=== PATIENT | female | born 1995 | race Two or more races ===

== ENCOUNTER 2016-07-28 10:32 | Emergency (ER) | payer SELFPAY ==
--- NOTE | 2016-07-28 10:43 | ER Document Report ---
ED Medical Screen (RME) - General Stated Complaint: COUGH Notes: 20 yo female c/o cough x 4 months. nasal congestion,headache generalized weakness and unexplained bruising. pt has been seen in ED several times for same complaint. TRAVEL OUTSIDE OF THE [place] IN LAST 30 DAYS: No - Related Data Allergies/Adverse Reactions: No Known Allergies Allergy (Verified 07/28/16 10:39) Past Medical History Pulmonary Medical History: Reports: Hx Asthma - Immunizations Immunizations up to date: Yes Hx Diphtheria, Pertussis, Tetanus Vaccination: Yes
[2016-07-28 11:11] LABS: ABSOLUTE BASOPHILS # (AUTO) 0.1 10^3/uL (0.0-0.2); ABSOLUTE EOSINOPHILS # (AUTO) 0.3 10^3/uL (0.0-0.6); ABSOLUTE LYMPHOCYTES (AUTO) 2.3 10^3/uL (0.5-4.7); ABSOLUTE MONOCYTES (AUTO) 0.3 10^3/uL (0.1-1.4); ABSOLUTE NEUT (AUTO) 6.3 10^3/uL (1.7-8.2); BASOPHILS % (AUTO) 0.6 % (0-2); EOSINOPHILS % (AUTO) 3.3 % (0-6); HEMATOCRIT 34.4 % (36.0-47.0); HEMOGLOBIN 10.8 g/dL (12.0-15.5); LYMPHOCYTES % (AUTO) 24.5 % (13-45); MEAN CORPUSCULAR HEMOGLOBIN 24.3 pg (27.0-33.4); MEAN CORPUSCULAR HGB CONC 31.5 g/dL (32.0-36.0); MEAN CORPUSCULAR VOLUME 77 fl (80-97); MONOCYTES % (AUTO) 3.7 % (3-13); RED BLOOD COUNT 4.45 10^6/uL (3.72-5.28); RED CELL DISTRIBUTION WIDTH 15.4 % (11.5-14.0); SEGMENTED NEUTROPHILS % (AUTO) 67.9 % (42-78); WHITE BLOOD COUNT 9.3 10^3/uL (4.0-10.5)
[2016-07-28 11:28] LABS: ALANINE AMINOTRANSFERASE 23 U/L (5-35); ALBUMIN 4.4 g/dL (3.7-5.6); ALKALINE PHOSPHATASE 73 U/L (50-135); ANION GAP 14 (5-19); ASPARTATE AMINO TRANSFERASE 12 U/L (5-30); BILIRUBIN,TOTAL 0.4 mg/dL (0.2-1.3); BLOOD UREA NITROGEN 13 mg/dL (7-20); CALCIUM 9.3 mg/dL (8.4-10.2); CARBON DIOXIDE 26 mmol/L (22-30); CHLORIDE 101 mmol/L (98-107); CREATININE RESULT 0.61 mg/dL (0.52-1.25); GLUCOSE 120 mg/dL (75-110); SODIUM 140.9 mmol/L (137-145); TOTAL PROTEIN 7.3 g/dL (6.3-8.2)
[2016-07-28] MEDS ORDERED: DEXAMETHASONE SOD PHOS INJ 10 MG/1 ML VIAL PO ONE (12:34)
--- NOTE | 2016-07-28 12:34 | ER Document Report ---
ED Respiratory Problem - General Chief Complaint: Cough Stated Complaint: COUGH Information source: Patient Notes: 20-year-old female with past medical history as recorded including asthma and iron deficiency anemia. Patient has never been admitted for asthma. Patient states she has had some increased congestion and coughing over the last 3-4 days. She states a mild intermittent low-grade subjective fevers. She denies any vomiting, diarrhea, chest pain or back pain. Patient has been evaluated in the emergency department during the past 6 months and found to have iron deficiency anemia. Patient has been placed on iron. does not have insurance and states she needs a refill prescription for albuterol inhaler. She states she has an upcoming appointment with the [facility]. TRAVEL OUTSIDE OF THE [place] IN LAST 30 DAYS: No - HPI Patient complains to provider of: Cough, Short of breath Onset: Other - See above Duration: Continuous Quality of pain: No pain Severity: Mild Pain Level: Denies Short of Breath: Mild Cough: Nonproductive Sputum amount: Scant At home treatment: Bronchodilators Associated symptoms: Other - See above Similar symptoms previously: Yes Recently seen / treated by doctor: Yes - Related Data Allergies/Adverse Reactions: No Known Allergies Allergy (Verified 07/28/16 10:39) Past Medical History - Social History Smoking Status: Never Smoker Chew tobacco use (# tins/day): No Smoking Education Provided: No Frequency of alcohol use: None Drug Abuse: None Family History: Reviewed & Not Pertinent Patient has suicidal ideation: No Patient has homicidal ideation: No Pulmonary Medical History: Reports: Hx Asthma Renal/ Medical History: Denies: Hx Peritoneal Dialysis - Immunizations Immunizations up to date: Yes Hx Diphtheria, Pertussis, Tetanus Vaccination: Yes Review of Systems - Review of Systems Constitutional: Fever EENT: Nose congestion, Nose discharge. denies: Eye discharge, Sinus discharge Cardiovascular: denies: Chest pain, Palpitations Respiratory: Cough, Short of breath Gastrointestinal: denies: Vomiting Genitourinary: denies: Dysuria Musculoskeletal: denies: Leg swelling Skin: Other - no hives. denies: Rash Neurological/Psychological: Other - no slurred speech -: Yes All other systems reviewed and negative Physical Exam - Vital signs Vitals: Temp Pulse Resp BP Pulse Ox 98.2 F 88 16 141/87 H 98 07/28/16 10:40 07/28/16 10:40 07/28/16 10:40 07/28/16 10:40 07/28/16 10:40 Notes: Reviewed vital signs and nursing note as charted by RN. CONSTITUTIONAL: Alert and oriented and responds appropriately to questions. Well -appearing; well-nourished HEAD: Normocephalic; atraumatic EYES: PERRL; Conjunctivae clear, sclerae non-icteric ENT: Normal nose; bilateral nonpurulent rhinorrhea; moist mucous membranes; pharynx without lesions noted NECK: Supple without meningismus; non-tender; no cervical lymphadenopathy, no masses CARD: Regular rate and rhythm; no murmurs, no clicks, no rubs, no gallops; symmetric distal pulses RESP: Normal chest excursion without splinting or tachypnea; breath sounds clear and equal bilaterally; no wheezing or rhonchi appreciated. BACK: The back appears normal and is non-tender to palpation, there is no CVA tenderness EXT: Normal ROM in all joints; non-tender to palpation; no cyanosis, no effusions, no edema SKIN: Normal color for age and race; warm; dry; good turgor; capillary refill < 2 seconds; no acute lesions noted NEURO: Moves all extremities equally; Motor and sensory function intact PSYCH: The patient's mood and manner are appropriate. Grooming and personal hygiene are appropriate. Course - Re-evaluation Re-evalutation: 07/28/16 12:32 Given the history and physical examination and x-ray of the chest as well as a CBC was ordered. Patient has no wheezing on auscultation vital signs are stable with good room air oxygen saturation of 98%. Chest x-ray shows normal heart, normal mediastinum, no fractures, normal lung nino, no pneumothorax. Hemoglobin as recorded with an MCV of 77. Given the history and physical examination, patient will be discharged home with strict return precautions and follow-up with the upcoming appointment. I will provide a one-time dose of Decadron to help decrease inflammation and provide a prescription for the albuterol inhaler. - Vital Signs Vital signs: Temp Pulse Resp BP Pulse Ox 98.2 F 88 16 141/87 H 98 07/28/16 10:40 07/28/16 10:40 07/28/16 10:40 07/28/16 10:40 07/28/16 10:40 - Laboratory Result Diagrams: 07/28/16 10:55 07/28/16 10:55 Laboratory results interpreted by me: 07/28/16 07/28/16 10:55 10:55 Hgb 10.8 L Hct 34.4 L MCV 77 L MCH 24.3 L MCHC 31.5 L RDW 15.4 H Glucose 120 H Discharge - Discharge Clinical Impression: Nasal congestion, Cough Condition: Good Disposition: HOME, SELF-CARE Additional Instructions: Come back immediately with any worsening cough, shortness of breath, fevers, leg swelling, or any other acute problems. Prescriptions: Albuterol Sulfate [Proair HFA Inhalation Aerosol 8.5 gm MDI] 2 puff IH Q4H PRN # 1 mdi PRN Reason:
[2016-07-28 12:54] VITALS: BP 134/106
== END 2016-07-28 12:52 | disposition home or self-care (01) ==
LOC: ER 10:32
DX: R05 Cough (principal); R09.81 Nasal congestion; J34.89 Other specified disorders of nose and nasal sinuses; J45.909 Unspecified asthma, uncomplicated; R06.02 Shortness of breath; D50.9 Iron deficiency anemia, unspecified; Z79.899 Other long term (current) drug therapy
CPT/HCPCS: 99283; 36415; 85025; 80053; 71020; J1100

== ENCOUNTER 2016-08-15 10:19 | Emergency (ER) | payer SELFPAY ==
[2016-08-15] MEDS ORDERED: ACETAMINOPHEN 325 MG TABLET PO ONE (10:53)
--- NOTE | 2016-08-15 10:53 | ER Document Report ---
ED Flu Like - General Chief Complaint: Pain All Over Stated Complaint: HEADACHE,SHOULDER PAIN,FEVER,COUGH Notes: The patient is a 20-year-old female, past medical history asthma, presents with 4 months of cough, wheezing and 2 days of fever. She had a dose of Decadron 2 weeks ago which helped her for 3 days, but her cough returned. When she coughs , she is having left shoulder pain and right lateral rib pain. No sick contacts and denies chest pain, sputum, rhinorrhea, leg swelling, abdominal pain , nausea, vomiting or urinary symptoms. TRAVEL OUTSIDE OF THE [place] IN LAST 30 DAYS: No - Related Data Allergies/Adverse Reactions: No Known Allergies Allergy (Verified 07/28/16 10:39) Past Medical History - General Information source: Patient - Social History Smoking Status: Never Smoker Family History: Reviewed & Not Pertinent Pulmonary Medical History: Reports: Hx Asthma Renal/ Medical History: Denies: Hx Peritoneal Dialysis - Immunizations Immunizations up to date: Yes Hx Diphtheria, Pertussis, Tetanus Vaccination: Yes Review of Systems - Review of Systems Notes: REVIEW OF SYSTEMS: CONSTITUTIONAL: +fevers, -chills EENT: -eye pain, -difficulty swallowing, -nasal congestion CARDIOVASCULAR: -chest pain, -syncope. RESPIRATORY: +cough, -SOB GASTROINTESTINAL: -abdominal pain, -nausea, -vomiting, -diarrhea GENITOURINARY: -dysuria, -hematuria MUSCULOSKELETAL: -back pain, -neck pain SKIN: -rash or skin lesions. HEMATOLOGIC: -easy bruising or bleeding. LYMPHATIC: -swollen, enlarged glands. NEUROLOGICAL: -altered mental status or loss of consciousness, -headache, - neurologic symptoms PSYCHIATRIC: -anxiety, -depression. ALL OTHER SYSTEMS REVIEWED AND NEGATIVE. Physical Exam - Vital signs Vitals: Temp Pulse Resp BP 100.5 F H 105 H 20 146/75 H 08/15/16 10:28 08/15/16 10:28 08/15/16 10:28 08/15/16 10:28 - Notes Notes: PHYSICAL EXAMINATION: GENERAL: Well-appearing, well-nourished and in no acute distress. HEAD: Atraumatic, normocephalic. EYES: Pupils equal round and reactive to light, extraocular movements intact, sclera anicteric, conjunctiva are normal. ENT: nares patent, oropharynx clear without exudates. Moist mucous membranes. NECK: Normal range of motion, supple without lymphadenopathy LUNGS: Very mild end expiratory wheezes. HEART: Tachycardia. Regular rhythm without murmurs ABDOMEN: Soft, nontender, normoactive bowel sounds. No guarding, no rebound. No masses appreciated. EXTREMITIES: Normal range of motion, no pitting or edema. No cyanosis. NEUROLOGICAL: Cranial nerves grossly intact. Normal speech, normal gait. Normal sensory, motor, and reflex exams. PSYCH: Normal mood, normal affect. SKIN: Warm, Dry, normal turgor, no rashes or lesions noted. Course - Re-evaluation Re-evalutation: Negative flu test and no pneumonia on chest x-ray. Patient most likely has a URI. She feels much better after DuoNeb. We'll treat her mild asthma exacerbation and URI with Medrol Dosepak, albuterol, Tessalon Perles and Robitussin with codeine and follow-up at her primary care physician this week. She already has an appointment. - Vital Signs Vital signs: Temp Pulse Resp BP Pulse Ox 100.5 F H 105 H 20 146/75 H 08/15/16 10:28 08/15/16 10:28 08/15/16 10:28 08/15/16 10:28 Discharge - Discharge Clinical Impression: Cough, Mild asthma exacerbation, Viral illness Condition: Good Disposition: HOME, SELF-CARE Additional Instructions: Your chest x-ray does not show any evidence of pneumonia. Your flu test was negative. Follow up with your primary care physician this week as scheduled. UPPER RESPIRATORY ILLNESS: You have a viral infection of the respiratory passages -- a "cold." This common infection causes nasal congestion, drainage, and often sore throat and cough. It is highly contagious. The disease usually lasts about 10 to 14 days. There is no "cure" for the viral infection -- it must run its course. If there is a complication, such as bacterial infection in the nose, sinuses, middle ear, or bronchial tubes, antibiotics may be required. The antibiotics won't affect the virus. Drink plenty of fluids. A humidifier may help. An expectorant medication or decongestant may make you more comfortable. Use acetaminophen or ibuprofen for fever or aches. See the doctor if fever persists over two days, if there is any significant worsening of your symptoms, or if you simply fail to improve as expected. BRONCHOSPASM: You have tightness in the bronchial tubes, called bronchospasm. This often occurs with bronchial infections. Allergies, inhaled chemicals, and polluted or cold air can also provoke bronchospasm. It's more likely in patients with asthma in the family. Emergency treatment of bronchospasm may include adrenaline shots or bronchodilator aerosol. You may feel lightheaded and have a rapid pulse for an hour or two. Rest and get plenty of fluids. At home, we'll treat you with a bronchodilator inhaler. Antibiotics and corticosteroids may be required for some patients. Until you recover, avoid chemical fumes, dusts, pollens, and exercising in very cold or dry air. If you smoke, stop now!! If you develop a fever, increased wheezing, chest pain, or severe shortness of breath, you should contact the doctor immediately. COUGH-SUPPRESSANT & EXPECTORANT MEDICATION: You are to use a cough medication as needed for relief of symptoms. This medicine is a combination of an expectorant (to make the mucous thinner and more easily "coughed up") and a cough suppressant (to reduce the frequency of coughing). The cough-suppressant medicine is related to narcotics. You may experience mild nausea and sleepiness. Some patients who are very sensitive to narcotics may have stomach pain from this medicine. Taking the medicine with food reduces these side effects. Do not drive or work with machinery until you know how this medicine affects you. The expectorant should have no side effects. Iodine-containing expectorants (such as organidin) should not be taken by persons with active thyroid disease unless approved by your doctor. Call the doctor if you develop shortness of breath, hives, rash, itching, lightheadedness, or severe nausea and vomiting. INHALED BRONCHODILATORS: You have received a treatment of and/or prescription for an inhaled bronchodilator -- a medication which stimulates the airways in the lung to dilate. This improves the flow of air in asthma, bronchitis, and emphysema. These medicines have some similarity to adrenaline, and can cause similar side effects: shakiness, racing heart, and a sense of nervousness. These side effects decrease with time. Contact your doctor if these side effects are severe. Do not over-use the medicine. Too-frequent use of the inhaler may make it ineffective. Call your doctor if the inhaler is not controlling your symptoms at the prescribed doses. STEROID MEDICATION: You have been given an injection of or oral medicine of the cortisone/ steroid class. This medication is used to control inflammation or allergy. Ced t is usually only given for a short period of time, until the acute process subsides. There are usually no side effects from short-term use of cortisone-like medications. Some persons feel an increased sense of well-being and are not sleepy at bedtime. Long-term use of cortisone medications is best avoided, unless required for a severe condition. If your condition does not remit, or relapses after the course of corticosteroid medication, you should consult your physician. USE OF ACETAMINOPHEN (Tylenol): Acetaminophen may be taken for pain relief or fever control. It's much safer than aspirin, offering a wider range of "safe" dosages. It is safe during . Some brand names are Tylenol, Panadol, Datril, Anacin 3, Tempra, and Liquiprin. Acetaminophen can be repeated every four hours. The following are maximum recommended dosages: >89 pounds or adults 650 mg to 900 mg Acetaminophen can be repeated every four hours. Maximum dose not to exceed 4000 mg a day. SMOKING: If you smoke, you should stop smoking. The tar and chemicals in cigarette smoke are harmful. Smoking has been shown to cause: emphysema chronic bronchitis lung cancer mouth and throat cancer stomach and pancreas cancer premature aging defects In addition, smoking increases ear and lung infections in children of smokers. FOLLOW-UP CARE: If you have been referred to a physician for follow-up care, call the physician s office for an appointment as you were instructed or within the next two days. If you experience worsening or a significant change in your symptoms, notify the physician immediately or return to the Emergency Department at any time for re-evaluation. Prescriptions: Benzonatate [Tessalon Perle 100 mg Capsule] 100 mg PO Q8HP PRN #30 cap PRN Reason: Albuterol Sulfate [Proair HFA Inhalation Aerosol 8.5 gm MDI] 2 puff IH Q4H PRN # 1 mdi PRN Reason: Guaifenesin/Codeine Phos [Robitussin-AC Syrup 59 ml] 10 ml PO QIDP PRN #10 ml PRN Reason: Methylprednisolone [Medrol Dosepack (4 mg/Tab) 21 Tab/Dosepak] 4 mg PO ASDIR PRN #21 tab.ds.pk PRN Reason:
[2016-08-15] MEDS ORDERED: GUAIFENESIN/CODEINE PHOS 100-10 MG/ 5 ML UDC PO ONE (11:09)
[2016-08-15] MEDS ORDERED: IPRATROPIUM/ALBUTEROL 0.5-2.5 MG/3 ML AMPUL NEB ONE (11:28)
[2016-08-15 12:35] VITALS: BP 112/81
== END 2016-08-15 12:30 | disposition home or self-care (01) ==
LOC: ER 10:19
DX: R05 Cough (principal); J45.909 Unspecified asthma, uncomplicated; B34.9 Viral infection, unspecified; R51 Headache; R52 Pain, unspecified; M25.519 Pain in unspecified shoulder
CPT/HCPCS: 94640; 99283; 87804; 71020; J7620

== ENCOUNTER 2016-09-20 20:11 | Emergency (ER) | payer SELFPAY | END 2016-09-20 22:01 | disposition left against medical advice (07) | LOC: ER 20:11 | DX: Z53.9 Procedure and treatment not carried out, unspecified reason (principal); R50.9 Fever, unspecified ==

== ENCOUNTER 2016-10-10 06:14 | Emergency (ER) | payer MEDICAID ==
[2016-10-10] MEDS ORDERED: KETOROLAC TROMETHAMINE INJ/PF 30 MG/1 ML SDV IV ONE (06:38)
--- NOTE | 2016-10-10 06:42 | ER Document Report ---
ED General - General Chief Complaint: Headache >24 hrs old Stated Complaint: HEADACHE,COUGH Mode of Arrival: Ambulatory Information source: Patient Notes: 20-year-old female presents with complaints of headache of 3 weeks duration and productive cough of 4 month duration. Patient notes headache has been getting worse, notes she is been seen multiple times for her cough has been treated with decongestant symptoms have not improved. Patient admits to nasal drainage thick and frontal headache TRAVEL OUTSIDE OF THE [place] IN LAST 30 DAYS: No - HPI Onset: Other Onset/Duration: Persistent Quality of pain: Achy Severity: Mild Pain Level: 1 Associated symptoms: Productive cough, Headache, Shortness of breath Exacerbated by: Denies Relieved by: Denies Similar symptoms previously: Yes Recently seen / treated by doctor: Yes - Related Data Allergies/Adverse Reactions: No Known Allergies Allergy (Verified 07/28/16 10:39) Past Medical History - Social History Smoking Status: Never Smoker Cigarette use (# per day): No Chew tobacco use (# tins/day): No Smoking Education Provided: No Family History: Reviewed & Not Pertinent Patient has suicidal ideation: No Patient has homicidal ideation: No Pulmonary Medical History: Reports: Hx Asthma Renal/ Medical History: Denies: Hx Peritoneal Dialysis - Immunizations Immunizations up to date: Yes Hx Diphtheria, Pertussis, Tetanus Vaccination: Yes Review of Systems - Review of Systems Notes: REVIEW OF SYSTEMS: CONSTITUTIONAL : Denies fever, chills, or sweats. Denies recent illness. EENT: Admits to thick nasal drainage CARDIOVASCULAR: Denies chest pain. Denies palpitations or racing or irregular heart beat. Denies ankle edema. RESPIRATORY: Admits to cough shortness of breath GASTROINTESTINAL: Denies abdominal pain or distention. Denies nausea, vomiting , or diarrhea. Denies blood in vomitus, stools, or per rectum. Denies black, tarry stools. Denies constipation. GENITOURINARY: Denies difficulty urinating, painful urination, burning, frequency, blood in urine, or discharge. FEMALE GENITOURINARY: Denies vaginal bleeding, heavy or abnormal periods, irregular periods. Denies vaginal discharge or odor. MUSCULOSKELETAL: Denies back or neck pain or stiffness. Denies joint pain or swelling. SKIN: Denies rash, lesions or sores. HEMATOLOGIC : Denies easy bruising or bleeding. LYMPHATIC: Denies swollen, enlarged glands. NEUROLOGICAL: Admits to headache PSYCHIATRIC: Denies anxiety or stress. Denies depression, suicidal ideation, or homicidal ideation. ALL OTHER SYSTEMS REVIEWED AND NEGATIVE. Dictation was performed using [employer] voice recognition software PHYSICAL EXAMINATION: GENERAL: Obese female well-appearing in no distress HEAD: Atraumatic, normocephalic. Frontal sinus tenderness noted EYES: Pupils equal round and reactive to light, extraocular movements intact, conjunctiva are normal. ENT: Nares patent, oropharynx clear without exudates. Moist mucous membranes. NECK: Normal range of motion, supple without lymphadenopathy LUNGS: Breath sounds clear to auscultation bilaterally and equal. No wheezes rales or rhonchi. HEART: Regular rate and rhythm without murmurs ABDOMEN: Soft, nontender, nondistended abdomen. No guarding, no rebound. No masses appreciated. Female : deferred Musculoskeletal: Normal range of motion, no pitting or edema. No cyanosis. NEUROLOGICAL: Cranial nerves grossly intact. Normal speech, normal gait. Normal sensory, motor exams PSYCH: Normal mood, normal affect. SKIN: Warm, Dry, normal turgor, no rashes or lesions noted. Physical Exam - Vital signs Vitals: Temp Pulse Resp BP Pulse Ox 98.3 F 117 H 18 137/82 H 98 10/10/16 06:21 10/10/16 06:21 10/10/16 06:21 10/10/16 06:21 10/10/16 06:21 Course - Re-evaluation Re-evalutation: 10/10/16 06:42 Patient has probable sinusitis however given the length of her presentation a d- dimer has been ordered even though patient has no known risk factors for DVTs or PEs 10/10/16 07:32 D-dimer was negative chest x-ray was normal CT of the head notes no acute abnormality, patient has sinusitis. It appears the patient has also been argumentative cursing at her mother and staff, appears patient attempted to swinging at staff members when they asked her to walk to receive a chest x-ray. Patient's crying and yelling in the room. I do not see any life-threatening issues with this patient I will give her follow-up with backfiller. After performing a Medical Screening Examination, I estimate there is LOW risk for ACUTE CORONARY SYNDROME, RESPIRATORY FAILURE, SEPSIS OR MENINGITIS, thus I consider the discharge disposition reasonable. The patient and I have discussed the diagnosis and risks, and we agree with discharging home with close follow- up. We also discussed returning to the Emergency Department immediately if new or worsening symptoms occur. We have discussed the symptoms which are most concerning (e.g., changing or worsening pain, trouble swallowing or breathing, neck stiffness, fever) that necessitate immediate return. - Vital Signs Vital signs: Temp Pulse Resp BP Pulse Ox 98.3 F 117 H 18 137/82 H 98 10/10/16 06:21 10/10/16 06:21 10/10/16 06:21 10/10/16 06:21 10/10/16 06:21 - Laboratory Result Diagrams: 10/10/16 06:45 10/10/16 06:45 Laboratory results interpreted by me: 10/10/16 10/10/16 06:45 06:45 Hgb 11.3 L Hct 34.0 L MCV 77 L MCH 25.5 L RDW 16.7 H Glucose 171 H Calcium 10.4 H Total Protein 8.3 H - Diagnostic Test Radiology reviewed: Image reviewed, Reports reviewed Discharge - Discharge Clinical Impression: Cough Sinusitis Qualifiers: Sinusitis location: frontal Chronicity: acute Recurrence: non-recurrent Qualified Code(s): J01.10 - Acute frontal sinusitis, unspecified Condition: Stable Disposition: HOME, SELF-CARE Instructions: Sinusitis ([facility]), Bronchitis ([facility]) Additional Instructions: Follow up with your physician tomorrow for further care or return to the ED IMMEDIATELY if symptoms worsen or new concerns occur. If you cannot afford to follow up with your primary care physician a list of low cost clinics have been provided at the end of your discharge papers as well. Prescriptions: Azithromycin 250 mg PO ASDIR PRN #6 tablet PRN Reason: Referrals: VALETNIN BERMAN MD [ACTIVE STAFF] - Follow up tomorrow
[2016-10-10 06:55] LABS: ABSOLUTE BASOPHILS # (AUTO) 0.1 10^3/uL (0.0-0.2); ABSOLUTE EOSINOPHILS # (AUTO) 0.3 10^3/uL (0.0-0.6); ABSOLUTE LYMPHOCYTES (AUTO) 2.3 10^3/uL (0.5-4.7); ABSOLUTE MONOCYTES (AUTO) 0.4 10^3/uL (0.1-1.4); BASOPHILS % (AUTO) 0.8 % (0-2); EOSINOPHILS % (AUTO) 2.5 % (0-6); HEMOGLOBIN 11.3 g/dL (12.0-15.5); HGB HCT DIFFERENCE -0.1; MEAN CORPUSCULAR HEMOGLOBIN 25.5 pg (27.0-33.4); MEAN CORPUSCULAR HGB CONC 33.2 g/dL (32.0-36.0); MEAN CORPUSCULAR VOLUME 77 fl (80-97); MONOCYTES % (AUTO) 4.4 % (3-13); RED BLOOD COUNT 4.43 10^6/uL (3.72-5.28); RED CELL DISTRIBUTION WIDTH 16.7 % (11.5-14.0); SEGMENTED NEUTROPHILS % (AUTO) 69.3 % (42-78); WHITE BLOOD COUNT 10.1 10^3/uL (4.0-10.5)
[2016-10-10 07:17] LABS: ALANINE AMINOTRANSFERASE 28 U/L (5-35); ALKALINE PHOSPHATASE 75 U/L (50-135); ASPARTATE AMINO TRANSFERASE 16 U/L (5-30); BILIRUBIN,DIRECT 0.2 mg/dL (0.0-0.4); BILIRUBIN,TOTAL 0.3 mg/dL (0.2-1.3); BLOOD UREA NITROGEN 13 mg/dL (7-20); CALCIUM 10.4 mg/dL (8.4-10.2); CARBON DIOXIDE 26 mmol/L (22-30); CHLORIDE 101 mmol/L (98-107); CREATININE RESULT 0.54 mg/dL (0.52-1.25); GLUCOSE 171 mg/dL (75-110); TOTAL PROTEIN 8.3 g/dL (6.3-8.2)
[2016-10-10 07:21] LABS: ANION GAP 16 (5-19); SODIUM 143.2 mmol/L (137-145)
[2016-10-10 07:43] VITALS: BP 138/88
== END 2016-10-10 07:45 | disposition home or self-care (01) ==
LOC: ER 06:14
DX: J01.10 Acute frontal sinusitis, unspecified (principal); R51 Headache; R05 Cough; J45.909 Unspecified asthma, uncomplicated; R06.02 Shortness of breath; J34.89 Other specified disorders of nose and nasal sinuses
CPT/HCPCS: 99284; 96374; 36415; 85025; 80053; 85379; 87804; 71020; 70450; J1885

== ENCOUNTER 2016-12-19 09:15 | Emergency (ER) | payer MEDICAID ==
[2016-12-19 09:20] VITALS: BP 146/80
--- NOTE | 2016-12-19 09:31 | ER Document Report ---
HPI - HPI Patient complains to provider of: Sore throat congestion and cough Onset: Other - 4 days Onset/Duration: Gradual Quality of pain: Achy Pain Level: 5 Context: 21-year-old non-smoker complaining of head congestion, sore throat,, hoarse voice for 4 days. She thinks is either a sinus infection or strep throat. Associated Symptoms: None Exacerbated by: Denies Relieved by: Denies - ROS ROS below otherwise negative: Yes Systems Reviewed and Negative: Yes All other systems reviewed and negative - REPRODUCTIVE Reproductive: DENIES: : - DERM Skin Color: Normal Past Medical History - General Information source: Patient - Social History Smoking Status: Never Smoker Frequency of alcohol use: None Drug Abuse: None Lives with: Family Family History: Reviewed & Not Pertinent Patient has suicidal ideation: No Patient has homicidal ideation: No Pulmonary Medical History: Reports: Hx Asthma Renal/ Medical History: Denies: Hx Peritoneal Dialysis Surgical Hx: Negative - Immunizations Immunizations up to date: Yes Hx Diphtheria, Pertussis, Tetanus Vaccination: Yes Vertical Provider Document - CONSTITUTIONAL Agree With Documented VS: Yes Exam Limitations: No Limitations General Appearance: No Apparent Distress - INFECTION CONTROL TRAVEL OUTSIDE OF THE [place] IN LAST 30 DAYS: No - HEENT HEENT: Normocephalic, Pharyngeal Erythema - minimal. negative: Tympanic Membrane Red, Tympanic Membrane Bulging - NECK Neck: Supple. negative: Lymphadenopathy-Left - RESPIRATORY Respiratory: Breath Sounds Normal, No Respiratory Distress O2 Sat by Pulse Oximetry: 96 - CARDIOVASCULAR Cardiovascular: Regular Rate, Regular Rhythm - GI/ABDOMEN Gastrointestinal: Abdomen Soft, Abdomen Non-Tender, No Organomegaly - MUSCULOSKELETAL/EXTREMETIES Musculoskeletal/Extremeties: JOSE ELIAS DORSEY - NEURO Level of Consciousness: Awake, Alert - DERM Integumentary: Warm, Dry, No Rash Course - Re-evaluation Re-evalutation: 12/19/16 10:00 Wants an antibiotic and something for pain. - Vital Signs Vital signs: Temp Pulse Resp BP Pulse Ox 98.4 F 102 H 16 146/80 H 96 12/19/16 09:18 12/19/16 09:18 12/19/16 09:18 12/19/16 09:18 12/19/16 09:18 Discharge - Discharge Clinical Impression: Upper respiratory infection Qualifiers: URI type: unspecified viral URI Qualified Code(s): J06.9 - Acute upper respiratory infection, unspecified Condition: Good Disposition: HOME, SELF-CARE Instructions: Acetaminophen, Upper Respiratory Illness ([facility]), Sore Throat ([facility]) , Amoxicillin ([facility]), Anti-Inflammatory Medication ([facility]) Additional Instructions: Please complete the patient satisfaction survey if you get one, and return it.. If you do not receive a survey, then you can go to the [facility] website, [email or web address] and place your comments about your very good care. Thank you very much. It was a pleasure being your medical provider today. Plenty of fluids to er if worse throat culture is pending, call [phone] in 48 hours for the result Prescriptions: Amoxicillin Trihydrate [Amoxil 500 mg Capsule] 1,000 mg PO BID #30 cap Referrals: BETTYE GARCIA MD [Primary Care Provider] - Follow up as needed
[2016-12-19] MEDS ORDERED: IBUPROFEN 800 MG TABLET PO ONE (09:58)
== END 2016-12-19 10:32 | disposition home or self-care (01) ==
LOC: ER 09:15
DX: J06.9 Acute upper respiratory infection, unspecified (principal); R49.0 Dysphonia; J02.9 Acute pharyngitis, unspecified; J45.909 Unspecified asthma, uncomplicated
CPT/HCPCS: 99283; 87070; 87077; J3490

== ENCOUNTER 2016-12-22 09:01 | Emergency (ER) | payer MEDICAID ==
[2016-12-22] MEDS ORDERED: DEXAMETHASONE SOD PHOS INJ 10 MG/1 ML VIAL IV ONE (09:53)
[2016-12-22] MEDS ORDERED: KETOROLAC TROMETHAMINE INJ/PF 30 MG/1 ML SDV IV ONE (09:53)
[2016-12-22] MEDS ORDERED: ONDANSETRON HCL INJ/PF 4 MG/2 ML SDV IV ONE (09:53)
[2016-12-22] MEDS ORDERED: CLINDAMYCIN 600 MG/D5W RTU 50 ML IV ONE (09:53)
--- NOTE | 2016-12-22 10:00 | ER Document Report ---
ED ENT - General Chief Complaint: Sore Throat Stated Complaint: SORE THROAT Time Seen by Provider: 12/22/16 09:42 Information source: Patient Notes: 21 yo female c/o worsening sore throat x 1 week. pt was seen in ED 3 days ago for same. treated with Amox. pt reports pain and swelling have worsened, hard to swallow and hard to breath TRAVEL OUTSIDE OF THE [place] IN LAST 30 DAYS: No - HPI Patient complains to provider of: Throat problem Onset: Last week Onset/Duration: Constant, Persistent, Worse Quality of pain: Achy, Sharp Pain Level: 5 Location of pain: Throat Associated symptoms: Congestion, Difficulty swallowing, Headache, Hoarse voice, Sore throat Similar symptoms previously: Yes Recently seen / treated by doctor: Yes - Related Data Allergies/Adverse Reactions: No Known Allergies Allergy (Verified 12/22/16 09:04) Past Medical History - General Information source: Patient - Social History Smoking Status: Never Smoker Chew tobacco use (# tins/day): No Frequency of alcohol use: None Drug Abuse: None Lives with: Family Family History: Reviewed & Not Pertinent Patient has suicidal ideation: No Patient has homicidal ideation: No Pulmonary Medical History: Reports: Hx Asthma Renal/ Medical History: Denies: Hx Peritoneal Dialysis Surgical Hx: Negative - Immunizations Immunizations up to date: Yes Hx Diphtheria, Pertussis, Tetanus Vaccination: Yes Review of Systems - Review of Systems Constitutional: No symptoms reported EENT: See HPI, Throat pain, Difficulty swallowing, Throat swelling Cardiovascular: No symptoms reported Respiratory: No symptoms reported Gastrointestinal: No symptoms reported Genitourinary: No symptoms reported Female Genitourinary: No symptoms reported Musculoskeletal: No symptoms reported Skin: No symptoms reported Hematologic/Lymphatic: No symptoms reported Neurological/Psychological: No symptoms reported Physical Exam - Vital signs Vitals: Temp Pulse Resp BP Pulse Ox 98.6 F 102 H 16 150/111 H 97 12/22/16 09:04 12/22/16 09:04 12/22/16 09:04 12/22/16 09:04 12/22/16 09:04 Interpretation: Normal - General General appearance: Alert In distress: Mild - HEENT Head: Normocephalic, Atraumatic Eyes: Normal Pupils: PERRL Tympanic membrane: Normal Mouth/Lips: Normal Mucous membranes: Normal Pharynx: Erythema, Tonsillar hypertrophy. No: Exudate, Potential airway comprom. Neck: Normal, Supple - Respiratory Respiratory status: No respiratory distress Chest status: Nontender Breath sounds: Normal Chest palpation: Normal - Cardiovascular Rhythm: Regular Heart sounds: Normal auscultation Murmur: No - Abdominal Inspection: Normal Distension: No distension Bowel sounds: Normal Tenderness: Nontender Organomegaly: No organomegaly - Back Back: Normal, Nontender - Extremities General upper extremity: Normal inspection, Nontender, Normal color, Normal ROM , Normal temperature General lower extremity: Normal inspection, Nontender, Normal color, Normal ROM , Normal temperature, Normal weight bearing. No: Jasmeet's sign - Neurological Neuro grossly intact: Yes Cognition: Normal Orientation: AAOx4 Mary Ann Coma Scale Eye Opening: Spontaneous Kathleen Coma Scale Verbal: Oriented Kathleen Coma Scale Motor: Obeys Commands Mary Ann Coma Scale Total: 15 Speech: Normal Motor strength normal: LUE, RUE, LLE, RLE Sensory: Normal - Psychological Associated symptoms: Normal affect, Normal mood - Skin Skin Temperature: Warm Skin Moisture: Dry Skin Color: Normal Course - Re-evaluation Re-evalutation: 12/22/16 09:[address] to r/o peritonsillar or retropharyngeal abscess since patient's pain has worsened. 12/22/16 11:42 CT showing prominent tonsils and adnoids with no peritonsillar abscess. monospot positive. pt informed of results. stable for discharge. 12/22/16 11:46 blood pressure is elevated today but is most likely due to not feeling well. pt informed of elevated reading and instructed to keep blood pressure diary and follow up with primary care if BP remains elevated. pt acknowledges understanding and agrees to plan 12/22/16 11:48 - Vital Signs Vital signs: Temp Pulse Resp BP Pulse Ox 98.6 F 102 H 18 150/111 H 97 12/22/16 09:04 12/22/16 09:04 12/22/16 09:07 12/22/16 09:04 12/22/16 09:04 - Laboratory Laboratory results interpreted by me: 12/22/16 10:30 Monotest POSITIVE H Discharge - Discharge Clinical Impression: Mononucleosis Condition: Stable Disposition: HOME, SELF-CARE Instructions: Mononucleosis ([facility]), Steroid Medication, Toradol Injection ([facility]) Additional Instructions: you have mononucleosis, which is a virus. treatment is symptomatic. rest and hydrate meds as prescribed follow up with primary care as needed Prescriptions: Ibuprofen [Motrin 800 Mg Tablet] 800 mg PO Q6H #20 tablet Prednisone [Deltasone 20 mg Tablet] 3 tab PO DAILY 5 Days Tramadol HCl [Ultram 50 mg Tablet] 50 mg PO ASDIR PRN #20 tablet PRN Reason: Forms: Elevated Blood Pressure
--- NOTE | 2016-12-22 11:19 | RADIOLOGY REPORT (SQ) ---
EXAM DESCRIPTION: CT SOFT TISSUE NECK WITH COMPLETED DATE/TIME: 12/22/2016 10:58 am REASON FOR STUDY: worsening sore throat COMPARISON: None. TECHNIQUE: Post IV contrasted scanning from skull base through lung apices with review of bone, soft tissue and lung windows. Reconstructed coronal and sagittal MPR images reviewed. All images stored on PACS. All CT scanners at this facility use dose modulation, iterative reconstruction, and/or weight based d osing when appropriate to reduce radiation dose to as low as reasonably achievable (ALARA). [facility]: Dose Right [facility]: CareDose [facility]: Dose Right [facility]: Teradose 4D [facility]: [employer] CONTRAST TYPE AND DOSE: contrast/concentration: Isovue 370.00 mg/ml; Total Contrast Delivered: 75.0 ml; Total Saline Delivered: 31.8 ml RENAL FUNCTION: None required. The patient is less than 50 years old. RADIATION DOSE: Up-to-date CT equipment and radiation dose reduction techniques were employed. CTDIv ol: 18.9 mGy. DLP: 576 mGy-cm. . LIMITATIONS: None. FINDINGS: SKULL BASE: Intact. MAJOR SALIVARY GLANDS: No solid or cystic masses. No inflammatory changes. LYMPHADENOPATHY: There is considerable cervical adenopathy bilaterally. MUCOSAL MASSES OR ASYMMETRY: The palatine tonsils and adenoids are prominent bilaterally. There is n o peritonsillar abscess. LARYNX/CORDS: No abnormal findings. VASCULAR STRUCTURES: The major vessels are patent. LUNG APICES: Clear. BONES: Intact. THYROID: Normal size. No masses. PARANASAL SINUSES: Clear. OTHER: No other significant finding. IMPRESSION: There is prominence of the tonsils and adenoids with no peritonsillar abscess. Cervical adenopathy is felt to be reactive. TECHNICAL DOCUMENTATION: JOB ID: [id number] Quality ID # [id number]: Final reports with documentation of one or more dose reduction techniques (e.g., Au tomated exposure control, adjustment of the mA and/or kV according to patient size, use of iterative reconstruction technique) 2010 [employer]- All Rights Reserved
[2016-12-22 13:18] VITALS: BP 145/84
== END 2016-12-22 13:17 | disposition home or self-care (01) ==
LOC: ER 09:01
DX: B27.90 Infectious mononucleosis, unspecified without complication (principal); J02.9 Acute pharyngitis, unspecified
CPT/HCPCS: 99283; 96375; 96365; 36415; 86308; 70491; S0077; J1885; J2405; J1100

== ENCOUNTER 2017-02-02 00:04 | Emergency (ER) | payer MEDICAID ==
[2017-02-02 01:35] LABS: APPEARANCE,URINE SLIGHTLY-CLOUDY; BILIRUBIN,URINE NEGATIVE (NEGATIVE); GLUCOSE, URINE 50 mg/dL (NEGATIVE); KETONES,URINE NEGATIVE (NEGATIVE); LEUKOCYTE ESTERASE,URINE NEGATIVE (NEGATIVE); NITRITE,URINE NEGATIVE (NEGATIVE); PROTEIN,URINE NEGATIVE (NEGATIVE); UROBILINOGEN,URINE NEGATIVE mg/dL (<2.0)
[2017-02-02] MEDS ORDERED: ONDANSETRON 4 MG TAB.RAPDIS PO ONE (01:38)
--- NOTE | 2017-02-02 01:47 | ER Document Report ---
ED General - General Chief Complaint: L flank pain, N/V Stated Complaint: FLANK PAIN AND VOMITING Time Seen by Provider: 02/02/17 01:10 Notes: Patient is a 21-year-old female presents with complaints of left back pain with some cramping on the left side whenever she urinates. No fevers. No vomiting. Some nausea. No diarrhea. No blood in her urine. No abnormal vaginal discharge or bleeding. No other complaints at this time. TRAVEL OUTSIDE OF THE [place] IN LAST 30 DAYS: No - Related Data Allergies/Adverse Reactions: No Known Allergies Allergy (Verified 02/02/17 01:25) Past Medical History - Social History Smoking Status: Unknown if Ever Smoked Frequency of alcohol use: None Drug Abuse: None Family History: Reviewed & Not Pertinent Pulmonary Medical History: Reports: Hx Asthma Renal/ Medical History: Denies: Hx Peritoneal Dialysis Surgical Hx: Negative - Immunizations Immunizations up to date: Yes Hx Diphtheria, Pertussis, Tetanus Vaccination: Yes Review of Systems - Review of Systems Notes: My Normal Review Basic REVIEW OF SYSTEMS: CONSTITUTIONAL : Denies fever, chills, or sweats. Denies recent illness. EENT: Denies eye, ear, throat, or mouth pain or symptoms. Denies nasal or sinus congestion. RESPIRATORY: Denies cough, cold, or chest congestion. Denies shortness of breath, difficulty breathing, or wheezing. GASTROINTESTINAL: Left back and flank pain.. Denies nausea, vomiting, or diarrhea. Denies constipation. Last BM: GENITOURINARY: Cramping with urination. FEMALE GENITOURINARY: Denies vaginal bleeding, abnormal or irregular periods. LMP: MUSCULOSKELETAL: Left back pain. SKIN: Denies rash or skin lesions. NEUROLOGICAL: Denies altered mental status or loss of consciousness. Denies weakness or paralysis or loss of use of either side. Denies problems with gait or speech. Denies sensory or motor loss. ALL OTHER SYSTEMS REVIEWED AND NEGATIVE. Physical Exam - Vital signs Vitals: Temp Pulse Resp BP Pulse Ox 99.3 F 95 16 140/83 H 99 02/02/17 00:30 02/02/17 00:30 02/02/17 00:30 02/02/17 00:30 02/02/17 00:30 - Notes Notes: General Appearance: Well nourished, alert, cooperative, no acute distress, mild obvious discomfort. Vitals: reviewed, See vital signs table. Head: no swelling or tenderness to the head Eyes: PERRL, EOMI, Conjuctiva clear Mouth: No decreasd moisture Neck: Supple, no neck tenderness, No thyromegaly Lungs: No wheezing, No rales, No rhonci, No accessory muscle use, good air exchange bilaterally. Heart: Normal rate, Regular rythm, No murmur, no rub Abdomen: Normal BS, soft, No rigidity, mild left flank and left lower quadrant abdominal tenderness to palpation, No guarding, no rebound, no abdominal masses , no organomegaly. Back: Negative Jatin's sign. Extremities: strength 5/5 in all extremities, good pulses in all extremities, no swelling or tenderness in the extremities, no edema. Skin: warm, dry, appropriate color, no rash Neuro: speech clear, oriented x 3, normal affect, responds appropriately to questions. Course - Re-evaluation Re-evalutation: 02/02/17 03:17am The exact cause of the patient's dysuria and flank pain is not 100% clear. Her laboratory evaluation is unremarkable. Her urinalysis just shows trace bacteri. Renal ultrasound shows no evidence of hydronephrosis. Patient's exam is very benign. Being that she does have symptoms consistent with UTI will start her on a short course of antibiotics and send a urine for culture. I informed her that is not 100% clear that she has UTI at this time however we will treat based on her symptoms. 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 She denies any abnormal vaginal discharge and is not sexually active and therefore I do not think pelvic exam is warranted at this time. Encourage her to return to ER if she has fevers, worsening pain, or feels unwell. Patient agrees with plan and will be discharged home. Dictation of this chart was performed using voice recognition software; therefore, there may be some unintended grammatical errors. - Vital Signs Vital signs: Temp Pulse Resp BP Pulse Ox 99.3 F 95 16 140/83 H 99 02/02/17 00:30 02/02/17 00:30 02/02/17 00:30 02/02/17 00:30 02/02/17 00:30 - Laboratory Result Diagrams: 02/02/17 01:17 02/02/17 01:17 Laboratory results interpreted by me: 02/02/17 02/02/17 02/02/17 01:17 01:17 01:17 Hgb 10.8 L Hct 33.0 L MCV 77 L MCH 25.2 L RDW 16.7 H BUN 6 L Glucose 127 H Urine Glucose (UA) 50 H Discharge - Discharge Clinical Impression: Dysuria, Flank pain Condition: Good Disposition: HOME, SELF-CARE Additional Instructions: Please return to the ER immediately if you develop fevers, worsneing pain, or feel that you are worsening. i have sent your urine for culture. If it grows a bacteria that is not suscepible to your anitbiotic we will give you a call. Prescriptions: Ciprofloxacin HCl [Cipro 500 mg Tablet] 500 mg PO BID #6 tablet Phenazopyridine HCl [Pyridium 100 Mg Tablet] 100 mg PO BID #6 tablet Forms: Return to Work Referrals: BETTYE GARCIA MD [Primary Care Provider] - Follow up tomorrow
[2017-02-02 02:03] LABS: ABSOLUTE EOSINOPHILS # (AUTO) 0.2 10^3/uL (0.0-0.6); ABSOLUTE LYMPHOCYTES (AUTO) 1.8 10^3/uL (0.5-4.7); ABSOLUTE MONOCYTES (AUTO) 0.3 10^3/uL (0.1-1.4); ABSOLUTE NEUT (AUTO) 4.7 10^3/uL (1.7-8.2); BASOPHILS % (AUTO) 0.5 % (0-2); EOSINOPHILS % (AUTO) 2.4 % (0-6); HEMOGLOBIN 10.8 g/dL (12.0-15.5); HGB HCT DIFFERENCE -0.6; LYMPHOCYTES % (AUTO) 25.9 % (13-45); MEAN CORPUSCULAR HEMOGLOBIN 25.2 pg (27.0-33.4); MEAN CORPUSCULAR HGB CONC 32.7 g/dL (32.0-36.0); MEAN CORPUSCULAR VOLUME 77 fl (80-97); MONOCYTES % (AUTO) 4.5 % (3-13); RED BLOOD COUNT 4.28 10^6/uL (3.72-5.28); RED CELL DISTRIBUTION WIDTH 16.7 % (11.5-14.0); SEGMENTED NEUTROPHILS % (AUTO) 66.7 % (42-78)
[2017-02-02 02:12] LABS: ANION GAP 12 (5-19); BLOOD UREA NITROGEN 6 mg/dL (7-20); CALCIUM 9.1 mg/dL (8.4-10.2); CARBON DIOXIDE 23 mmol/L (22-30); CHLORIDE 104 mmol/L (98-107); CREATININE RESULT 0.59 mg/dL (0.52-1.25); GLUCOSE 127 mg/dL (75-110); POTASSIUM 4.2 mmol/L (3.6-5.0); SODIUM 139.3 mmol/L (137-145)
--- NOTE | 2017-02-02 02:42 | RADIOLOGY REPORT (SQ) ---
EXAM DESCRIPTION: U/S RETROPERITON (RENAL/AORTA) COMPLETED DATE/TIME: 02/02/2017 2:26 am REASON FOR STUDY: left back pain COMPARISON: None. TECHNIQUE: Dynamic and static grayscale images acquired of the kidneys and bladder and recorded on P ACS. Additional selected color Doppler and spectral images recorded. LIMITATIONS: None. FINDINGS: RIGHT KIDNEY: 9.7 cm. Normal size. Normal echogenicity. No solid or suspicious masses. No hydronephrosis. No calcifications. LEFT KIDNEY: 12.2 cm. Normal size. Normal echogenicity. No solid or suspicious masses. No hydroneph rosis. No calcifications. Prominent column of [place]. BLADDER: No masses. Bilateral ureteral jet flow demonstrated. OTHER FINDINGS: No other significant finding. IMPRESSION: NORMAL RENAL AND BLADDER ULTRASOUND. TECHNICAL DOCUMENTATION: JOB ID: [id number] [employer]- All Rights Reserved
[2017-02-02] MEDS ORDERED: PHENAZOPYRIDINE HCL 200 MG TABLET PO ONE (03:07)
[2017-02-02] MEDS ORDERED: CIPROFLOXACIN HCL 500 MG TABLET PO ONE (03:07)
[2017-02-02 04:07] VITALS: BP 142/98
== END 2017-02-02 04:13 | disposition home or self-care (01) ==
LOC: ER 00:04
DX: R30.0 Dysuria (principal); R11.0 Nausea; R10.9 Unspecified abdominal pain; M54.9 Dorsalgia, unspecified; J45.909 Unspecified asthma, uncomplicated
CPT/HCPCS: 99284; 36415; 87086; 85025; 81025; 80048; 81001; 76770; J3490 ×2; S0119

== ENCOUNTER 2017-02-02 04:37 | Emergency (ER) | payer MEDICAID ==
[2017-02-02] MEDS ORDERED: DIPHENHYDRAMINE HCL 50 MG/ML VIAL IV ONE (04:40)
[2017-02-02] MEDS ORDERED: METHYLPREDNISOLONE INJ 125 MG/2 ML SDV IV ONE (04:41)
[2017-02-02] MEDS ORDERED: EPINEPHRINE INJ/PF 1 MG/1 ML AMPULE IM ONE (04:41)
--- NOTE | 2017-02-02 04:46 | ER Document Report ---
ED General - General Stated Complaint: DIFF BREATHING Time Seen by Provider: 02/02/17 04:43 Notes: Patient is a 21-year-old female who was just discharged by me for flank pain and some dysuria. She was placed on Cipro and Pyridium. Shortly after she left she started having allergic reaction to return. She has hives and a hoarse voice. She says she has had hives before but never hoarse voice. She is unaware if she has had these medications in the past and does not remember having any type reaction like this before any medications. No other complaints at this time. TRAVEL OUTSIDE OF THE [place] IN LAST 30 DAYS: No - Related Data Allergies/Adverse Reactions: phenazopyridine Adverse Reaction (Severe, Verified 02/02/17 07:39) ciprofloxacin Adverse Reaction (Verified 02/02/17 07:39) Past Medical History - Social History Smoking Status: Never Smoker Frequency of alcohol use: None Drug Abuse: None Family History: Reviewed & Not Pertinent Pulmonary Medical History: Reports: Hx Asthma Renal/ Medical History: Denies: Hx Peritoneal Dialysis - Immunizations Immunizations up to date: Yes Hx Diphtheria, Pertussis, Tetanus Vaccination: Yes Review of Systems - Review of Systems Notes: My Normal Review Basic REVIEW OF SYSTEMS: CONSTITUTIONAL : Denies fever, chills, or sweats. Denies recent illness. EENT: Persistent voice. CARDIOVASCULAR: Denies chest pain. RESPIRATORY: Some difficulty breathing. GASTROINTESTINAL: Flank pain from previous visit she was just worked up for. Please review to recent chart from previous visit for more details of her flank pain.. Denies nausea, vomiting, or diarrhea. MUSCULOSKELETAL: Denies neck or back pain or joint pain or swelling. SKIN: Hives. NEUROLOGICAL: Denies altered mental status or loss of consciousness. Denies headache. Denies weakness or paralysis or loss of use of either side. Denies problems with gait or speech. Denies sensory or motor loss. ALL OTHER SYSTEMS REVIEWED AND NEGATIVE. Physical Exam - Vital signs Vitals: Pulse Resp BP Pulse Ox 129 H 24 H 151/111 H 97 02/02/17 04:43 02/02/17 04:43 02/02/17 04:43 02/02/17 04:43 - Notes Notes: General Appearance: Well nourished, alert, cooperative, no acute distress, no obvious discomfort. Patient has hoarseness to her voice. Vitals: reviewed, See vital signs table. Head: no swelling or tenderness to the head Eyes: PERRL, EOMI, Conjuctiva clear Mouth: No decreasd moisture Throat: No tonsillar inflammation, No airway obstruction, Neck: Supple, no neck tenderness, No thyromegaly Lungs: No wheezing, No rales, No rhonci, No accessory muscle use, good air exchange bilaterally. No stridor. Heart: Normal rate, Regular rythm, No murmur, no rub Extremities: strength 5/5 in all extremities, good pulses in all extremities, no swelling or tenderness in the extremities, no edema. Skin: Scattered hives. Neuro: speech clear, oriented x 3, normal affect, responds appropriately to questions. Course - Re-evaluation Re-evalutation: 02/02/17 06:35 Patient's rash is almost completely gone. She still says that her throat hurts. She still has some hoarseness in her voice but it is improving. We will continue to monitor the patient to make sure that her voice clears up before being discharged. 02/02/17 08:14 Patient is feeling much improved. Her hives are completely gone. Her throat feels better. She has no signs of airway compromise. She will be discharged home. I will discharge her home with tapering dose steroids as well as an EpiPen. I encourage her to take Benadryl every 6 hours for itching. Encouraged to return to ER immediately if she has any fevers, vomiting, difficulty breathing, or recurrence of allergic reaction not responding to Benadryl. Patient encouraged to stay away from Cipro and Pyridium. At this time we will like to avoid antibiotics the patient's urinalysis just showed mild evidence of infection and we are basing treatment mainly on her symptoms. We will wait for her urine culture come back before reinitiating antibiotics. Patient is agreeable to this. Dictation of this chart was performed using voice recognition software; therefore, there may be some unintended grammatical errors. - Vital Signs Vital signs: Temp Pulse Resp BP Pulse Ox 129 H 20 136/84 H 99 02/02/17 04:43 02/02/17 06:15 02/02/17 06:15 02/02/17 06:15 Discharge - Discharge Clinical Impression: Allergic reaction Qualifiers: Encounter type: initial encounter Qualified Code(s): T78.40XA - Allergy, unspecified, initial encounter Condition: Good Disposition: HOME, SELF-CARE Additional Instructions: ACUTE ALLERGIC REACTION: Your symptoms are due to an allergic reaction. Allergy can cause hives, swelling of the hands, feet, and face, hoarseness, and difficulty swallowing or breathing. It may be due to exposure to medication, animal dander, foods, infection, or insect bites. Medication is a common cause, even when prior use of this same medication caused no problems. Your Allergic reaction was either caused by Ciprofloxacin or Pyridium. Please do not take these medicitons ever again adn inform your doctors of your allergies. Pyridium is also known as Azo in the stores. Do not take Azo. EPINEPHRINE: An injection of epinephrine (also called adrenalin) is used to treat allergic reactions, asthma, and some other medical conditions. It is a stimulant medication that consticts blood vessels, relaxes smooth muscles such as in the bronchioles of the lung, elevates blood pressure, and increases heart rate. It can temporarily make you feel very nervous and shakey, but it's affects last only a short time, about 15 to 30 minutes at most. STEROID MEDICATION INJECTION: You have been given an injection of medicine of the cortisone/steroid class. This medication is used to control inflammation or allergy. It is often continued as a pill for a short period of time, until the acute process subsides. There are usually no side effects from short-term use of cortisone-like medications. Some persons feel an increased sense of well-being and are not sleepy at bedtime. Long-term use of cortisone medications is best avoided, unless required for a severe condition. If your condition does not remit, or relapses after the course of corticosteroid medication, you should consult your physician. STEROID MEDICATION: You have been given a medicine of the cortisone/steroid class. This medication is used to control inflammation or allergy. It is usually only given for a short period of time, until the acute process subsides. There are usually no side effects from short-term use of cortisone-like medications. Some persons feel an increased sense of well-being and are not sleepy at bedtime. Long-term use of cortisone medications is best avoided, unless required for a severe condition. If your condition does not remit, or relapses after the course of corticosteroid medication, you should consult your physician. ANTIHISTAMINES: An antihistamine has been given and/or prescribed to control your symptoms. Antihistamines are used for many reasons, including itching, watering eyes, runny nose, allergic swelling, hives, and insect stings. Antihistamines may cause drowsiness, especially with the first dose. Do not operate machinery or drive while under the effects of the medication. Other common side effects include dry mouth and eyes. In older persons, antihistamines can occasionally cause urinary retention, constipation, and trouble focusing the eyes. Do not combine the medication with alcohol, or with any other medication without talking to your doctor. FOLLOW-UP CARE: If you have been referred to a physician for follow-up care, call the physician s office for an appointment as you were instructed or within the next two days. If you experience worsening or a significant change in your symptoms, notify the physician immediately or return to the Emergency Department at any time for re-evaluation. Please use the epipen and return to the ER immediately if you have difficulty breathing throat swelling, or feel that you are worsening in any way. Prescriptions: Epinephrine [Epipen 2-Kofi] 0.3 mg IM ASDIR PRN #1 packet PRN Reason: Prednisone 10 mg PO ASDIR #42 tablet Forms: Return to Work Referrals: DEJA ISABEL MD [Primary Care Provider] - Follow up in 3-5 days
[2017-02-02] MEDS ORDERED: ONDANSETRON HCL INJ/PF 4 MG/2 ML SDV ONE ×2 (05:00)
[2017-02-02] MEDS ORDERED: RACEPINEPHRINE HCL 2.25% NEB 0.5 ML AMPUL NEB ONE (05:16)
[2017-02-02 08:29] VITALS: BP 113/70
== END 2017-02-02 08:29 | disposition home or self-care (01) ==
LOC: ER 04:37
DX: T78.40XA Allergy, unspecified, initial encounter (principal); R49.0 Dysphonia; L50.9 Urticaria, unspecified; R07.0 Pain in throat; X58.XXXA Exposure to other specified factors, initial encounter; J45.909 Unspecified asthma, uncomplicated; R10.9 Unspecified abdominal pain
CPT/HCPCS: 94640; 99283; 96372; 96374; 96375; J1200; J0171; J2930; J3490

== ENCOUNTER 2017-04-23 21:36 | Emergency (ER) | payer MEDICAID ==
[2017-04-23] MEDS ORDERED: PROMETHAZINE HCL 25 MG TABLET PO ONE (23:14)
[2017-04-23] MEDS ORDERED: FAMOTIDINE 20 MG TABLET PO ONE (23:14)
[2017-04-23 23:16] VITALS: BP 153/74
--- NOTE | 2017-04-23 23:16 | ER Document Report ---
ED GI/ - General Chief Complaint: Abdominal Pain Stated Complaint: CHEST PAIN/BLACK STOOL Time Seen by Provider: 04/23/17 23:05 Notes: Patient is a 21-year-old female comes emergency department for chief complaint of intermittent abdominal cramps and nausea for the past 2 weeks, she also reports some pain with urination and lower abdominal cramping with urination. She has also noticed for the past several days that she is having black appearing stools. She denies flank pain, vomiting, fever/chills, vaginal discharge or bleeding. She is on iron supplement for anemia, takes treatments for asthma, denies any surgeries or other medical conditions. She also recently started a new oral contraceptive. TRAVEL OUTSIDE OF THE [place] IN LAST 30 DAYS: No - Related Data Allergies/Adverse Reactions: phenazopyridine Adverse Reaction (Severe, Verified 02/02/17 07:39) ciprofloxacin Adverse Reaction (Verified 02/02/17 07:39) Past Medical History - General Information source: Patient - Social History Smoking Status: Never Smoker Frequency of alcohol use: None Drug Abuse: None Lives with: Family Family History: Reviewed & Not Pertinent Patient has suicidal ideation: No Patient has homicidal ideation: No Pulmonary Medical History: Reports: Hx Asthma Renal/ Medical History: Denies: Hx Peritoneal Dialysis Surgical Hx: Negative - Immunizations Immunizations up to date: Yes Hx Diphtheria, Pertussis, Tetanus Vaccination: Yes Review of Systems - Review of Systems Constitutional: No symptoms reported EENT: No symptoms reported Cardiovascular: See HPI Respiratory: No symptoms reported Gastrointestinal: See HPI Genitourinary: See HPI Female Genitourinary: No symptoms reported Musculoskeletal: No symptoms reported Skin: No symptoms reported Hematologic/Lymphatic: No symptoms reported Neurological/Psychological: No symptoms reported Physical Exam - Vital signs Vitals: Temp Pulse Resp BP Pulse Ox 98.7 F 97 18 153/74 H 96 04/23/17 23:03 04/23/17 23:03 04/23/17 23:03 04/23/17 23:03 04/23/17 23:03 Interpretation: Normal - General General appearance: Appears well, Alert In distress: None - Patient smiling, laughing, well-appearing - HEENT Head: Normocephalic, Atraumatic Eyes: Normal Conjunctiva: Normal Extraocular movements intact: Yes Eyelashes: Normal Pupils: PERRL Nasal: Normal Mouth/Lips: Normal Mucous membranes: Normal Pharynx: Normal Neck: Normal - Respiratory Respiratory status: No respiratory distress Chest status: Nontender Breath sounds: Normal. No: Decreased air movement, Wheezing Chest palpation: Normal - Cardiovascular Rhythm: Regular. No: Tachycardia Heart sounds: Normal auscultation, S1 appreciated, S2 appreciated Murmur: No - Abdominal Inspection: Normal Distension: No distension Bowel sounds: Normal Tenderness: Nontender. No: Tender, Guarding Organomegaly: No organomegaly - Rectal Stool: See lab result. No: Black, Bloody Hemorrhoids: None. No: Internal, External, Anal fissure, Mass - Back Back: Normal, Nontender. No: Tender - Extremities General upper extremity: Normal inspection, Nontender, Normal color, Normal ROM , Normal temperature General lower extremity: Normal inspection, Nontender, Normal color, Normal ROM , Normal temperature, Normal weight bearing. No: Jasmeet's sign - Neurological Neuro grossly intact: Yes Cognition: Normal Orientation: AAOx4 [place] Coma Scale Eye Opening: Spontaneous [place] Coma Scale Verbal: Oriented [place] Coma Scale Motor: Obeys Commands [place] Coma Scale Total: 15 Speech: Normal Motor strength normal: LUE, RUE, LLE, RLE Sensory: Normal - Psychological Associated symptoms: Normal affect, Normal mood - Skin Skin Temperature: Warm Skin Moisture: Dry Skin Color: Normal Course - Re-evaluation Re-evalutation: Patient well-appearing on exam, soft abdomen, unremarkable rectal examination, this was performed with TENZIN Arreguin at bedside. No bleeding on exam, no bleeding on laboratory results, suspect black stools from earlier were because patient is taking iron supplement. Anemia consistent with patient's baseline. No suspicion of gastrointestinal bleed or acute abdominal emergency on patient's evaluation. Discussed results with patient, recommendations, patient given IV fluids because of dehydration evidenced on urine, discussed follow-up and return precautions, provided with Phenergan to take if needed for intermittent nausea, patient states understanding and agreement. - Vital Signs Vital signs: Temp Pulse Resp BP Pulse Ox 98.7 F 97 18 153/74 H 96 04/23/17 23:03 04/23/17 23:03 04/23/17 23:03 04/23/17 23:03 04/23/17 23:03 - Laboratory Result Diagrams: 04/23/17 23:08 04/23/17 23:08 Laboratory results interpreted by me: 04/23/17 04/23/17 04/23/17 23:08 23:08 23:08 Hgb 10.2 L Hct 30.6 L MCV 76 L MCH 25.4 L RDW 16.2 H Glucose 129 H ALT 60 H Urine Protein 30 H Urine Urobilinogen 4.0 H Discharge - Discharge Clinical Impression: Black stools Abdominal pain Qualifiers: Abdominal location: generalized Qualified Code(s): R10.84 - Generalized abdominal pain Condition: Stable Disposition: HOME, SELF-CARE Additional Instructions: Your laboratory evaluation shows dehydration but does not show any other specific or concerning abnormalities. The black stools you have seen recently are most likely because you are taking iron. No evidence of bleeding on your exam or workup today. Take the Phenergan if needed for nausea, improve hydration, follow-up with your provider for additional management. Return to the emergency department for any concerning or worsening symptoms including vomiting, vomiting blood, fever, severe abdominal pain, etc. Prescriptions: Promethazine HCl [Phenergan 25 mg Tablet] 1 - 2 tab PO Q6H PRN #15 tablet PRN Reason:
[2017-04-23 23:52] LABS: ABSOLUTE EOSINOPHILS # (AUTO) 0.2 10^3/uL (0.0-0.6); ABSOLUTE LYMPHOCYTES (AUTO) 2.2 10^3/uL (0.5-4.7); ABSOLUTE MONOCYTES (AUTO) 0.3 10^3/uL (0.1-1.4); BASOPHILS % (AUTO) 0.5 % (0-2); EOSINOPHILS % (AUTO) 2.2 % (0-6); HEMATOCRIT 30.6 % (36.0-47.0); HEMOGLOBIN 10.2 g/dL (12.0-15.5); LYMPHOCYTES % (AUTO) 28.5 % (13-45); MEAN CORPUSCULAR HEMOGLOBIN 25.4 pg (27.0-33.4); MEAN CORPUSCULAR HGB CONC 33.5 g/dL (32.0-36.0); MEAN CORPUSCULAR VOLUME 76 fl (80-97); MONOCYTES % (AUTO) 3.8 % (3-13); RED BLOOD COUNT 4.03 10^6/uL (3.72-5.28); RED CELL DISTRIBUTION WIDTH 16.2 % (11.5-14.0); WHITE BLOOD COUNT 7.7 10^3/uL (4.0-10.5)
[2017-04-23 23:59] LABS: APPEARANCE,URINE SLIGHTLY-CLOUDY; BILIRUBIN,URINE NEGATIVE (NEGATIVE); GLUCOSE, URINE NEGATIVE (NEGATIVE); KETONES,URINE NEGATIVE (NEGATIVE); LEUKOCYTE ESTERASE,URINE NEGATIVE (NEGATIVE); NITRITE,URINE NEGATIVE (NEGATIVE); PROTEIN,URINE 30 mg/dL (NEGATIVE); URINE SPECIFIC GRAVITY 1.032
[2017-04-24] MEDS ORDERED: NORMAL SALINE 1000 ML 1,000 ML IV ONE (00:05)
[2017-04-24 00:08] LABS: ALANINE AMINOTRANSFERASE 60 U/L (9-52); ALBUMIN 4.7 g/dL (3.5-5.0); ALKALINE PHOSPHATASE 64 U/L (38-126); ANION GAP 14 (5-19); ASPARTATE AMINO TRANSFERASE 30 U/L (14-36); BILIRUBIN,DIRECT 0.4 mg/dL (0.0-0.4); BILIRUBIN,TOTAL 0.4 mg/dL (0.2-1.3); BLOOD UREA NITROGEN 14 mg/dL (7-20); CALCIUM 9.8 mg/dL (8.4-10.2); CARBON DIOXIDE 26 mmol/L (22-30); CHLORIDE 101 mmol/L (98-107); CREATININE RESULT 0.56 mg/dL (0.52-1.25); GLUCOSE 129 mg/dL (75-110); LIPASE 135.5 U/L (23-300); SODIUM 141.2 mmol/L (137-145); TOTAL PROTEIN 7.9 g/dL (6.3-8.2)
== END 2017-04-24 01:59 | disposition home or self-care (01) ==
LOC: ER 21:36
DX: R10.84 Generalized abdominal pain (principal); R07.9 Chest pain, unspecified; R30.9 Painful micturition, unspecified
CPT/HCPCS: 99284; 96360; 36415; 83690; 85025; 82272; 81025; 80053; 81001; J3490 ×2; J7030

== ENCOUNTER 2017-09-02 01:39 | Emergency (ER) | payer MEDICAID ==
[2017-09-02 01:46] VITALS: BP 149/94
== END 2017-09-02 02:20 | disposition left against medical advice (07) ==
LOC: ER 01:39
DX: Z53.21 Procedure and treatment not carried out due to patient leaving prior to being seen by health care provider (principal)

== ENCOUNTER 2017-09-10 02:46 | Emergency (ER) | payer MEDICAID ==
[2017-09-10 02:55] VITALS: BP 149/95
--- NOTE | 2017-09-10 03:27 | RADIOLOGY REPORT (SQ) ---
EXAM DESCRIPTION: FOOT LEFT COMPLETE CLINICAL HISTORY: fall with pain COMPARISON: None. FINDINGS: 3 views of the left foot. No acute fracture or dislocation. The tarsals and metatarsals are appropriately aligned. Normal osseous mineralization. IMPRESSION: 1. No acute fracture or dislocation.
[2017-09-10] MEDS ORDERED: KETOROLAC TROMETHAMINE 60 MG/2 ML SDV IM ONE (03:39)
--- NOTE | 2017-09-10 03:40 | ER Document Report ---
ED General - General Chief Complaint: Foot Injury Stated Complaint: LEFT FOOT INJURY Time Seen by Provider: 09/10/17 03:34 Mode of Arrival: Wheelchair Information source: Patient, Relative Notes: 21-year-old female presents with complaints of left foot injury while at [facility]. Patient notes she slipped. Notes it hurts when she ambulates. She denies any other injuries TRAVEL OUTSIDE OF THE [place] IN LAST 30 DAYS: No - HPI Onset: Just prior to arrival Onset/Duration: Sudden Quality of pain: Achy Severity: Mild Pain Level: 1 Associated symptoms: Body/muscle aches Exacerbated by: Movement Relieved by: Denies Similar symptoms previously: No Recently seen / treated by doctor: No - Related Data Allergies/Adverse Reactions: phenazopyridine Adverse Reaction (Severe, Verified 09/10/17 02:48) ciprofloxacin Adverse Reaction (Verified 09/10/17 02:48) Past Medical History - Social History Smoking Status: Never Smoker Cigarette use (# per day): No Chew tobacco use (# tins/day): No Smoking Education Provided: No Family History: Reviewed & Not Pertinent Pulmonary Medical History: Reports: Hx Asthma Renal/ Medical History: Denies: Hx Peritoneal Dialysis - Immunizations Immunizations up to date: Yes Hx Diphtheria, Pertussis, Tetanus Vaccination: Yes Review of Systems - Review of Systems Notes: REVIEW OF SYSTEMS: CONSTITUTIONAL : Denies fever, chills, or sweats. Denies recent illness. EENT: Denies eye, ear, throat, or mouth pain or symptoms. Denies nasal or sinus congestion or discharge. Denies throat, tongue, or mouth swelling or difficulty swallowing. CARDIOVASCULAR: Denies chest pain. Denies palpitations or racing or irregular heart beat. Denies ankle edema. RESPIRATORY: Denies cough, cold, or chest congestion. Denies shortness of breath, difficulty breathing, or wheezing. GASTROINTESTINAL: Denies abdominal pain or distention. Denies nausea, vomiting , or diarrhea. Denies blood in vomitus, stools, or per rectum. Denies black, tarry stools. Denies constipation. GENITOURINARY: Denies difficulty urinating, painful urination, burning, frequency, blood in urine, or discharge. FEMALE GENITOURINARY: Denies vaginal bleeding, heavy or abnormal periods, irregular periods. Denies vaginal discharge or odor. MUSCULOSKELETAL: Admits to left foot pain SKIN: Denies rash, lesions or sores. HEMATOLOGIC : Denies easy bruising or bleeding. LYMPHATIC: Denies swollen, enlarged glands. NEUROLOGICAL: Denies confusion or altered mental status. Denies passing out or loss of consciousness. Denies dizziness or lightheadedness. Denies headache. Denies weakness or paralysis or loss of use of either side. Denies problems with gait or speech. Denies sensory loss, numbness, or tingling. Denies seizures. PSYCHIATRIC: Denies anxiety or stress. Denies depression, suicidal ideation, or homicidal ideation. ALL OTHER SYSTEMS REVIEWED AND NEGATIVE. PHYSICAL EXAMINATION: GENERAL: Well-appearing, well-nourished and in no acute distress. HEAD: Atraumatic, normocephalic. EYES: Pupils equal round and reactive to light, extraocular movements intact, conjunctiva are normal. ENT: Nares patent, oropharynx clear without exudates. Moist mucous membranes. NECK: Normal range of motion, supple without lymphadenopathy LUNGS: Breath sounds clear to auscultation bilaterally and equal. No wheezes rales or rhonchi. HEART: Regular rate and rhythm without murmurs ABDOMEN: Soft, nontender, nondistended abdomen. No guarding, no rebound. No masses appreciated. Female : deferred Musculoskeletal: Tenderness upon palpation of the midfoot no edema noted no ecchymosis NEUROLOGICAL: Cranial nerves grossly intact. Normal speech, normal gait. Normal sensory, motor exams PSYCH: Normal mood, normal affect. SKIN: Warm, Dry, normal turgor, no rashes or lesions noted. Dictation was performed using [employer] voice recognition software Physical Exam - Vital signs Vitals: Temp Pulse Resp BP Pulse Ox 98.5 F 118 H 16 149/95 H 99 09/10/17 02:53 09/10/17 02:53 09/10/17 02:53 09/10/17 02:53 09/10/17 02:53 Course - Re-evaluation Re-evalutation: 09/10/17 05:18 Physical examination is quite benign, patient notes it hurts in midfoot, I reviewed the x-rays myself and notes no signs of Lisfranc fracture, however patient will be placed on crutches given Shalom wrap was given Toradol and follow- up with orthopedics tomorrow for reevaluation After performing a Medical Screening Examination, I estimate there is LOW risk for INTRACRANIAL HEMORRHAGE, UNSTABLE SPINE FRACTURE, CENTRAL CORD SYNDROME, CAUDA EQUINA, THORACIC AORTIC DISSECTION, PNEUMOTHORAX, PERFORATED BOWEL, RUPTURED ABDOMINAL AORTIC ANEURYSM, ACUTE TENDON RUPTURE, COMPARTMENT SYNDROME, or OPEN FRACTURE, thus I consider the discharge disposition reasonable. Also, there is no evidence or peritonitis, sepsis, or toxicity. I have reevaluated this patient multiple times and no significant life threatening changes are noted. The patient and I have discussed the diagnosis and risks, and we agree with discharging home to follow-up with their primary doctor with the understanding that symptoms and presentations can change. We also discussed returning to the Emergency Department immediately if new or worsening symptoms occur. We have discussed the symptoms which are most concerning (e.g., bloody stool, fever, changing or worsening pain, vomiting) that necessitate immediate return. - Vital Signs Vital signs: Temp Pulse Resp BP Pulse Ox 98.5 F 118 H 16 149/95 H 99 09/10/17 02:53 09/10/17 02:53 09/10/17 02:53 09/10/17 02:53 09/10/17 02:53 - Diagnostic Test Radiology reviewed: Image reviewed, Reports reviewed - No acute fracture Discharge - Discharge Clinical Impression: Injury of left foot Qualifiers: Encounter type: initial encounter Qualified Code(s): S99.922A - Unspecified injury of left foot, initial encounter Condition: Stable Disposition: HOME, SELF-CARE Instructions: Contusion ([facility]) Forms: Return to Work Referrals: AZIZA QUARLES MD [ACTIVE STAFF] - Follow up tomorrow
== END 2017-09-10 03:58 | disposition home or self-care (01) ==
LOC: ER 02:46
DX: S99.922A Unspecified injury of left foot, initial encounter (principal); W01.0XXA Fall on same level from slipping, tripping and stumbling without subsequent striking against object, initial encounter; Y92.512 Supermarket, store or market as the place of occurrence of the external cause; J45.909 Unspecified asthma, uncomplicated
CPT/HCPCS: 99283; 73630; J1885

== ENCOUNTER 2018-09-10 01:48 | Emergency (ER) | payer MEDICAID, OTHER ==
[2018-09-10] MEDS ORDERED: ACETAMINOPHEN 325 MG TABLET PO ONE (03:41)
[2018-09-10] MEDS ORDERED: METOCLOPRAMIDE HCL INJ/PF 10 MG/2 ML SDV IV ONE (03:51)
[2018-09-10 04:21] LABS: ABSOLUTE EOSINOPHILS # (AUTO) 0.1 10^3/uL (0.0-0.6); ABSOLUTE LYMPHOCYTES (AUTO) 1.8 10^3/uL (0.5-4.7); ABSOLUTE MONOCYTES (AUTO) 0.3 10^3/uL (0.1-1.4); ABSOLUTE NEUT (AUTO) 5.6 10^3/uL (1.7-8.2); BASOPHILS % (AUTO) 0.3 % (0-2); EOSINOPHILS % (AUTO) 1.4 % (0-6); HEMATOCRIT 31.9 % (36.0-47.0); HEMOGLOBIN 10.6 g/dL (12.0-15.5); LYMPHOCYTES % (AUTO) 22.5 % (13-45); MEAN CORPUSCULAR HEMOGLOBIN 26.4 pg (27.0-33.4); MEAN CORPUSCULAR HGB CONC 33.4 g/dL (32.0-36.0); MEAN CORPUSCULAR VOLUME 79 fl (80-97); MONOCYTES % (AUTO) 3.8 % (3-13); PLATELET COUNT 252 10^3/uL (150-450); RED BLOOD COUNT 4.03 10^6/uL (3.72-5.28); RED CELL DISTRIBUTION WIDTH 16.7 % (11.5-14.0); TOTAL CELLS COUNTED % (AUTO) 100 %; WHITE BLOOD COUNT 7.8 10^3/uL (4.0-10.5)
[2018-09-10 04:28] LABS: APPEARANCE,URINE SLIGHTLY-CLOUDY; BILIRUBIN,URINE NEGATIVE (NEGATIVE); COLOR,URINE YELLOW; GLUCOSE, URINE NEGATIVE (NEGATIVE); KETONES,URINE TRACE mg/dL (NEGATIVE); LEUKOCYTE ESTERASE,URINE NEGATIVE (NEGATIVE); NITRITE,URINE NEGATIVE (NEGATIVE); PROTEIN,URINE NEGATIVE (NEGATIVE); URINE SPECIFIC GRAVITY 1.019; UROBILINOGEN,URINE NEGATIVE mg/dL (<2.0)
[2018-09-10 04:37] LABS: ALANINE AMINOTRANSFERASE 35 U/L (9-52); ALBUMIN 4.2 g/dL (3.5-5.0); ALKALINE PHOSPHATASE 57 U/L (38-126); ANION GAP 10 (5-19); ASPARTATE AMINO TRANSFERASE 30 U/L (14-36); BILIRUBIN,DIRECT 0.6 mg/dL (0.0-0.4); BILIRUBIN,TOTAL 0.6 mg/dL (0.2-1.3); BLOOD UREA NITROGEN 8 mg/dL (7-20); CALCIUM 9.6 mg/dL (8.4-10.2); CARBON DIOXIDE 24 mmol/L (22-30); CHLORIDE 101 mmol/L (98-107); GLUCOSE 106 mg/dL (75-110); SODIUM 135.2 mmol/L (137-145); TOTAL PROTEIN 7.1 g/dL (6.3-8.2)
[2018-09-10 05:00] VITALS: BP 140/82
[2018-09-10] MEDS ORDERED: DIPHENHYDRAMINE HCL 50 MG/ML VIAL IV ONE (05:03)
--- NOTE | 2018-09-10 05:10 | ER Document Report ---
ED General - General Chief Complaint: Headache Stated Complaint: HEADACHE/HIGH BLOOD PRESSURE Time Seen by Provider: 09/10/18 03:40 Notes: Patient is a 22-year-old female presents to the emergency department for generalized headache and high blood pressure. Patient is 16 weeks . States she does have a history of diabetes, PCO S, hypertension. States prior to her becoming she was diagnosed with diabetes and hypertension. States she was not placed on any medication for hypertension states her [employer] Dr. Castro was just watching her blood pressure. States she has not followed up with Dr. Castro in the last month. States she has had some generalized sinus pain and pressure for the last 24 hours. States she typically takes Mucinex for it but that did not help today which is why she presents to the emergency room. Patient then states about a week ago she was at [facility] emergency room for generalized vomiting and diarrhea. States she was told she was going to be admitted to the hospital at that time but then was not admitted. Patient states she is unsure of exactly why she was not admitted. Patient states she was given Zofran and Phenergan. States she took Zofran around 2000 hrs. last evening but then vomited around midnight. Patient states she does feel nauseated and has a generalized headache. Patient's denying any change to her vision, blurred vision, double vision. Patient states she took her blood pressure at home and it read 170 over "something." Past medical history: Diabetes, PCO S, hypertension Medications: Metformin, insulin (Patient does not know the names of her insulins), Dulera, Singulair, montelukast, Zofran, Phenergan, Diclegis Allergies: Cipro TRAVEL OUTSIDE OF THE [place] IN LAST 30 DAYS: No - Related Data Allergies/Adverse Reactions: phenazopyridine Adverse Reaction (Severe, Verified 09/10/18 01:50) ciprofloxacin Adverse Reaction (Verified 09/10/18 01:50) Past Medical History - General Information source: Patient - Social History Smoking Status: Never Smoker Frequency of alcohol use: None Drug Abuse: None Family History: Reviewed & Not Pertinent Patient has suicidal ideation: No Patient has homicidal ideation: No - Past Medical History Cardiac Medical History: Reports: Hx Hypertension Pulmonary Medical History: Reports: Hx Asthma Endocrine Medical History: Reports: Hx Diabetes Mellitus Type 2 Renal/ Medical History: Denies: Hx Peritoneal Dialysis - Immunizations Immunizations up to date: Yes Hx Diphtheria, Pertussis, Tetanus Vaccination: Yes Review of Systems - Review of Systems Constitutional: No symptoms reported EENT: See HPI Cardiovascular: denies: Chest pain, Palpitations, Heart racing Respiratory: No symptoms reported Gastrointestinal: See HPI Genitourinary: denies: Burning, Dysuria Female Genitourinary: See HPI Musculoskeletal: No symptoms reported Skin: No symptoms reported Hematologic/Lymphatic: No symptoms reported Neurological/Psychological: No symptoms reported Physical Exam - Vital signs Vitals: Temp Pulse Resp BP Pulse Ox 98.9 F 110 H 20 148/98 H 98 09/10/18 01:51 09/10/18 01:51 09/10/18 01:51 09/10/18 01:51 09/10/18 01:51 - Notes Notes: GENERAL: Alert, interacts well. No acute distress. HEAD: Normocephalic, atraumatic. No frontal or maxillary sinus tenderness noted EYES: Pupils equal, round, and reactive to light. Extraocular movements intact. ENT: Oral mucosa moist, tongue midline. TMs intact, no erythema or bulging noted bilaterally pharynx within normal limits no palatal petechiae noted NECK: Full range of motion. Supple. Trachea midline. LUNGS: Clear to auscultation bilaterally, no wheezes, rales, or rhonchi. No respiratory distress. HEART: Regular rate and rhythm. No murmur ABDOMEN: Obese soft, non-tender. Non-distended. Bowel sounds present in all 4 quadrants. EXTREMITIES: Moves all 4 extremities spontaneously. No edema, normal radial and dorsalis pedis pulses bilaterally. No cyanosis. BACK: no cervical, thoracic, lumbar midline tenderness. No saddle anesthesia, no rmal distal neurovascular exam. NEUROLOGICAL: Alert and oriented x3. Normal speech. cranial nerves II through XII grossly intact. PSYCH: Normal affect, normal mood. SKIN: Warm, dry, normal turgor. No rashes or lesions noted. - HEENT Visual acuity- Right eye: 20/50 Visual acuity- Left eye: 20/40 Visual acuity- Both eyes: 20/40 Corrective lenses worn: No Course - Re-evaluation Re-evalutation: Patient initially presents to the emergency department with chief complaint of generalized headache and hypertension. Patient states she is a very high risk and is concerned because her at home blood pressure was very high. Patient states she was placed on hypertension medications in the past but she is unsure of the name and states she does not take them currently. Patient states she did take her at home Zofran, Phenergan, did likely just but still vomited around midnight this evening. Discussed use of Reglan for her generalized nausea and vomiting. Also discussed use of Tylenol for her generalized headache. Discussed routine blood work and urine to rule out signs of preeclampsia. Patient voices understanding and is agreeable with this plan. 09/10/18 05:12 Patient's labs show no signs of leukocytosis, does show signs of anemia in reviewing past charts this appears to be patient's baseline. Patient's platelet count is within normal limits. Patient's creatinine is 0.041, no change in her BUN or GFR. Patient's urine shows no signs of infection is also showing no signs of proteinuria. Nurse brings to my attention that the patient would like to leave the hospital. Patient will not speak to me states "I just want to go home." Unsure if this is a reaction to the Reglan. Discussed use of Benadryl to help her calm down. Patient states "I just want to go home." In attempting to discuss patient's labs with her she continues to state "I will sign out AGAINST MEDICAL ADVICE, I just want to go home." Voiced to the patient that I would like to call [employer] to run her blood pressure by them and her lab work. Her manual blood pressure was 140/82. Patient states she will follow-up with her primary care provider and [employer]. Discussed with her need for close follow-up and return precautions. Patient decides AGAINST MEDICAL ADVICE paperwork and is seen walking out of the emergency department in no obvious distress. - Vital Signs Vital signs: Temp Pulse Resp BP Pulse Ox 98.9 F 110 H 20 140/82 H 98 09/10/18 01:51 09/10/18 01:51 09/10/18 01:51 09/10/18 05:00 09/10/18 01:51 - Laboratory Result Diagrams: 09/10/18 03:50 09/10/18 03:50 Laboratory results interpreted by me: 09/10/18 09/10/18 09/10/18 03:40 03:50 03:50 Hgb 10.6 L Hct 31.9 L MCV 79 L MCH 26.4 L RDW 16.7 H Sodium 135.2 L Creatinine 0.41 L Direct Bilirubin 0.6 H Urine Ketones TRACE H Discharge - Discharge Clinical Impression: Left against medical advice
== END 2018-09-10 05:13 | disposition home or self-care (01) ==
LOC: ER 01:48
DX: O26.92 Pregnancy related conditions, unspecified, second trimester (principal); R51 Headache; R03.0 Elevated blood-pressure reading, without diagnosis of hypertension; Z3A.16 16 weeks gestation of pregnancy; Z88.3 Allergy status to other anti-infective agents
CPT/HCPCS: 99284; 96374; 36415; 87086; 85025; 80053; 81001; J2765

== ENCOUNTER 2018-10-26 22:46 | Emergency (ER) | payer OTHER ==
[2018-10-26 22:53] VITALS: BP 149/89
== END 2018-10-26 23:37 | disposition left against medical advice (07) ==
LOC: ER 22:46
DX: Z53.21 Procedure and treatment not carried out due to patient leaving prior to being seen by health care provider (principal)